=== PATIENT | male | born 1995 | race Caucasian/White ===

== ENCOUNTER 2024-11-29 07:49 | Outpatient (CLI) | payer OTHER ==
[2024-11-29 08:38] LABS: #Basophils 0.07 10x3/uL (0.0-0.2); #Eosinophils 0.42 10x3/uL (0.0-0.5); #Monocytes 1.16 10x3/uL (0.0-1.1); #Neutrophils 6.32 10x3/uL (1.5-8.4); %Basophils 0.7 % (0.0-2.0); %Eosinophils 4.1 % (0.0-6.0); %Lymphocytes 20.1 % (18.0-47.0); %Monocytes 11.4 % (0.0-10.0); %Neutrophils 62.1 % (40.0-75.0); Hematocrit 50.6 % (38.8-50.0); Hemoglobin 16.1 g/dL (13.5-17.5); Mean Corpuscular Hemoglobin 27.4 pg (27.0-33.0); Mean Corpuscular Volume 86.2 fL (81.2-95.1); Platelet Count 241 10x3/uL (150-450); Red Blood Cell (RBC) Count 5.87 10x6/uL (4.32-5.72); White Blood Cell (WBC) Count 10.18 10x3/uL (3.5-10.5)
[2024-11-29 09:40] LABS: Anion Gap 16 mmol/L (10-20); BUN (Urea Nitrogen) 11 mg/dL (8.9-20.6); Calc. Creatinine Clearance 0 mL/min (70-130); Calcium 8.4 mg/dL (7.8-10.44); Carbon Dioxide 23 mmol/L (22-29); Chloride 105 mmol/L (98-107); Glucose 116 mg/dL (70-105); Potassium 4.2 mmol/L (3.5-5.1); Sodium 140 mmol/L (136-145)
== END 2024-11-29 07:50 | disposition home or self-care (01) ==
LOC: CSHLAB 07:49
PROVIDERS: ATTEND Surgery
DX: Z01.818 Encounter for other preprocedural examination (principal); K43.9 Ventral hernia without obstruction or gangrene
CPT/HCPCS: 80048; 85025; 93005; 93010

== ENCOUNTER 2024-12-06 06:55 | Day surgery (SDC) | payer OTHER ==
[2024-11-29 08:22] VITALS: BMI 45.7
[2024-12-06] MEDS ORDERED: Bupivacaine/Epinephrine 0.25% 30 ML VIAL ONE (07:03)
[2024-12-06] MEDS ORDERED: PROPOFOL 20 ML ONE (08:19)
[2024-12-06] MEDS ORDERED: Ketorolac Tromethamine 30 MG (1 mL) VIAL ONE (08:19)
[2024-12-06] MEDS ORDERED: Rocuronium Bromide 10 MG/ML (10ML VIAL) ONE (08:22)
[2024-12-06] MEDS ORDERED: Ondansetron PF 4 MG/2 ML Vial ONE (08:23)
[2024-12-06] MEDS ORDERED: Famotidine/PF 20 mg/2ml Vial ONE (08:24)
[2024-12-06] MEDS ORDERED: CEFAZOLIN 2 GM VIAL ONE (08:31)
[2024-12-06] MEDS ORDERED: SUGAMMADEX SODIUM 200 MG/2 ML VIAL ONE (08:45)
[2024-12-06] MEDS ORDERED: HYDROmorphone 0.5 MG/0.5 ML SYRINGE ONE (10:21)
[2024-12-06] MEDS ORDERED: oxyCODONE 5 MG TAB ONE (11:28)
== END 2024-12-06 12:20 | disposition home or self-care (01) ==
LOC: CSHSDC 06:55
PROVIDERS: ATTEND Surgery
PROC: 0WUF4JZ Supplement Abdominal Wall with Synthetic Substitute, Percutaneous Endoscopic Approach (ICD-10-PCS; principal; 2024-12-06)
DX: K43.9 Ventral hernia without obstruction or gangrene (principal); F17.200 Nicotine dependence, unspecified, uncomplicated
CPT/HCPCS: C1781; J1100; J1171; J1308; J1885; J2405; J2704; J3010; S2900